=== PATIENT | male | born 1975 | race Caucasian/White ===

== ENCOUNTER 2021-07-03 14:38 | Outpatient (CLI) | payer OTHER ==
--- NOTE | 2021-07-03 15:55 | SLEEP CARE CONSULTATION ---
Information from patient questionnaire entered by Kye Beasley. I have reviewed and concur with the information entered by Kye Beasley. This document represents the service I personally performed and the decisions made by me, Estela Hoang ARNP. History of Present Illness Service Date and Time: 07/03/2021 1438 Reason for Visit: New patient Chief Complaint: reports: Unrefreshed sleep, Snoring, Excessive daytime sleepiness, Fatigue, Frequent awakenings at night Date of Onset: 5 years at least Usual bedtime: 7-8 PM Time it takes to fall asleep: 30 min to an hour Snores at night: Yes Observed to quit breathing while asleep: Yes Sleeps alone due to snoring: No Number of times waking at night: 2-3 Reasons for waking at night: reports: Snoring, Bathroom Toss, Turn, or Twitch while sleeping: Yes Recalls having dreams: No Usually gets out of bed at: 5 AM; Thursday 7-8 am usually Feels refreshed in the morning: Yes (but doesn't last long) Morning headache: No Sleepy or fatigued during the day: Yes Ever fallen asleep while driving: No Takes day naps: Yes (Sundays, 2 hours after getting up in morning will fall asleep on couch) Dreams during day naps: No Prior sleep studies: No Additional HPI information: I had the pleasure of seeing SUAD MONROY today regarding the possibility of him having a sleep disorder. His current complaints are excessive daytime sleepiness, fatigue, frequent night awakenings, observed pauses in breathing, snoring and unrefreshed sleep. He states he will randomly throughout the night. He will have racing thoughts that keep him awake. His has poked him at night to turn over because of his loud snoring or that he stopped breathing. He feels rested when he gets up but by the time he is driving to work he is very tired (feels like he did not sleep at all). He is tired during the day. He can fall asleep easily if watching TV. 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 Patient is and lives in [place]. Have you smoked in the past 12 months: No Alcohol use: Yes Alcohol amount and frequency: 5 beers a week Caffeine use: Yes Caffeine amount and frequency: 10 coffees a week Family History Family history of sleep disordered breathing: No Allergies and Home Medications Drug allergies reviewed: Yes (NKDA) Home medication list reviewed: Yes Allergy and home medication list: Lisinopril Review of Systems Weight loss over past 5 years: 30 Cardiovascular: reports: high blood pressure Gastrointestinal: denies: heartburn Neurological: denies: headaches Psychiatric: denies: anxiety, depression Ear/Nose/Throat: reports: wisdom teeth removed. denies: injury to nose, tonsillectomy Immunologic: denies: allergies to food or environment Physical Exam Blood Pressure: 122/74 Cuff size: wrist Heart Rate: 87 O2 Saturation: 97 Height: 6 ft 5 in Weight: 271 lb Body Mass Index: 32.1 BMI Classification: Obese Neck circumference: 18.25 (inches) Mouth and throat: narrow oropharynx Soft palate: long Hard palate: normal Uvula: normal Uvula visualization: 50% Mallampati Class II Tongue: enlarged in size with teeth stout on lateral edges Tonsils: small Neck: normal w/o lymphadenopathy or thyromegaly Heart: regular rate and rhythm Lungs: clear bilaterally Impression and Plan 1. Suspected Obstructive Sleep Apnea-Hypopnea Syndrome, as suggested by a history of loud and irregular snoring, observed cessation of breath while asleep, frequent awakening during the night, unrefreshed sleep, and excessive daytime sleepiness. Narrow oropharynx and obesity are common predisposing factors for obstructive sleep apnea-hypopnea syndrome. I recommend proceeding to polysomnography to confirm the diagnosis and to assess severity. If the patient has significant sleep disordered breathing, a manual CPAP titration study will also be performed to find the optimal treatment pressure. I informed the patient of what the sleep studies involve and after some discussion, obtained agreement to proceed. The pathophysiology of obstructive sleep apnea-hypopnea syndrome was discussed with the patient and health risks of cardiovascular and cerebrovascular disease if not treated. AASM brochure for obstructive sleep apnea-hypopnea syndrome given and reviewed. Risks of drowsy driving discussed in detail and patient advised to avoid long distance driving and to pull worker at the first sign of drowsiness. Patient agreed to plan. * Schedule polysomnography +- manual CPAP titration study and return in 1-2 weeks after the study to discuss result and initiate therapy. * Avoid long distance driving or driving when feeling sleepy. * Avoid alcohol, sedative and muscle relaxant around bedtime. * Attempt to lose weight. * Review instructions provided by trained office staff on how to prepare for the sleep study. * Return for follow-up after sleep study completed. Counseling Topics: Weight loss health impact Visit Type: In Office Time Spent with Patient (minutes): 32 Provider Statement: I spent 100% of the Face to Face Visit with the patient with greater than 50% spent counseling the patient and coordination of care.
[2021-07-03 15:56] VITALS: BP 122/74
== END 2021-07-03 14:39 | disposition home or self-care (01) ==
LOC: SC 14:38
PROVIDERS: ATTEND Nurse Practitioner Family
DX: R06.83 Snoring (principal); G47.8 Other sleep disorders; G47.10 Hypersomnia, unspecified; E66.9 Obesity, unspecified; Z68.32 Body mass index [BMI] 32.0-32.9, adult
CPT/HCPCS: 99203; 99212

== ENCOUNTER 2021-08-20 15:24 | Outpatient (CLI) | payer OTHER | END 2021-08-20 15:25 | disposition home or self-care (01) | LOC: SC 15:24 | PROVIDERS: ATTEND Nurse Practitioner Family | DX: G47.33 Obstructive sleep apnea (adult) (pediatric) (principal); R09.02 Hypoxemia; I10 Essential (primary) hypertension | CPT/HCPCS: 95806 ==

== ENCOUNTER 2021-09-11 08:51 | Outpatient (CLI) | payer OTHER ==
[2021-09-11 09:51] VITALS: BP 138/111
--- NOTE | 2021-09-11 09:51 | SLEEP CARE CONSULTATION ---
Information from patient questionnaire entered by Massimo Kuo MA. I have reviewed and concur with the information entered by Massimo Kuo MA. This document represents the service I personally performed and the decisions made by , Estela Hoang ARNP. History of Present Illness Service Date and Time: 09/11/2021 0851 Initial [place] Sleepiness Scale score: 15 (in 2020) Current [place] Sleepiness Scale score: 7 (2021) Additional HPI information: SUAD MONROY returns for follow up and results of the recently performed home sleep study. I explained the pathophysiology behind obstructive sleep apnea. We then spent quite a bit of time discussing different treatment options. For mild obstructive sleep apnea, surgery and oral appliance are alternatives to nasal CPAP therapy but in moderate or severe cases, nasal CPAP is the most effective and reliable treatment. Because apnea is primarily in supine position, then positional management therapy could be effective. Methods discussed such as positioning with pillows, using a T-shirt with tennis balls in the back, and shown commercial products that have a pillow format on back to prevent supine sleep. I reviewed the impact of weight changes on sleep apnea and strongly recommended losing weight. After some discussion, the patient opted to go with the nasal CPAP therapy. Nasal autoCPAP set at 4-15 cmH20 will be ordered with rationale explained. A manual titration study will be ordered if unable to find optimal pressure with office adjustments. I explained how CPAP machine works and what to expect when using the machine. Using CPAP every night in order to get used to it was emphasized. Patient advised to put CPAP mask on before getting into bed so as not to fall asleep without CPAP. To assist acclimation to CPAP use, it could also be used for a short time during day while reading or watching TV. The patient was instructed to call the CPAP supplier to discuss any mechanical problem that may occur. If the mask given is uncomfortable or is difficult to keep on through the night even with adjustment, contact the CPAP supplier as many will replace with another mask style if notified before 30 days. If snoring or perceives is not getting enough air or too much air from the machine, notify this office. [facility] patient education PAP tips reviewed and given to patient. Patient counseled not drink alcohol less than 4 hours before bedtime as it can increase snoring and apnea. Patient was cautioned about risks of drowsy driving until sleepiness symptoms resolve. Sleep Study - Results Type of Sleep Study: Home sleep study Prior sleep studies: No Polysomnography/Home Sleep Study results: Physician Impression: The quality of the study is good. The length of the study is adequate (> 240 minutes). Please also see the tabulated and graphic data. 1. Obstructive Sleep Apnea-Hypopnea (ICD-10 G47.33), mild, with an AHI of 13.3/hr and rasta SaO2 of 77%. During the study, the patient had 67 apneas (67 obstructive, 0 central, 0 mixed) and 12 hypopneas. The longest episode lasted 105.5 seconds. The respiratory events occurred almost exclusively during supine sleep (supine AHI was 31.3 and non-supine, 1.13). 2. Hypoxemia (ICD-10 R09.02), moderate, with the lowest oxygen saturation of 77 % and 2.0 minutes with SaO2 under 90%. Baseline oxygen saturation was normal (Average oxygen saturation was 95%). Allergies and Home Medications Home medication list reviewed: Yes (no changes) Review of Systems Review of systems same as previous: Yes (no changes) Physical Exam Vital signs obtained and entered by: Riley KUO CMA AAJOSEPH Blood Pressure: 138/111 (left, retake 128/98 right arm) Cuff size: wrist Heart Rate: 98 O2 Saturation: 84 Height: 6 ft 5 in Weight: 270 lb Body Mass Index: 32.0 BMI Classification: Obese Impression and Plan 1. Obstructive Sleep Apnea-Hypopnea Syndrome, mild, with lowest oxygen saturation of 77%. Obviously this is the cause of the patients symptoms of unrefreshed sleep, and excessive daytime sleepiness. Positive pressure therapy could benefit hypertension. He has tried to stay off his back in the past but get so uncomfortable on his sides that he will end up on his back. The patient will be started on nasal autoCPAP therapy with pressure set at 4-15 cmH2O. A manual titration study will be completed if unable to find optimal treatment pressure with office adjustments. Compliance guidelines also reviewed. A copy of compliance guidelines will be given for reference at check out. Because the apnea is more severe supine, I instructed to avoid sleeping supine using pillow positioning until able to start CPAP use. 2. Hypoxemia, moderate, with the lowest oxygen saturation of 77 % and 2.0 minutes with SaO2 under 90%. His baseline oxygen saturation was normal with an average oxygen saturation of 95%. * Nasal auto CPAP therapy, pressure at 4-15 cm H2O. * Attempt to lose weight. * Avoid alcohol consumption near bedtime. * Avoid supine sleep until using CPAP. * The patient is again cautioned about driving until sleepiness completely resolves. * Return one month after CPAP obtained. I will assess response to therapy and compliance at that time. Counseling Topics: Sleeping position, Weight loss health impact Visit Type: In Office Time Spent with Patient (minutes): 20 Provider Statement: I spent 100% of the Face to Face Visit with the patient with greater than 50% spent counseling the patient and coordination of care.
== END 2021-09-11 08:52 | disposition home or self-care (01) ==
LOC: SC 08:51
PROVIDERS: ATTEND Nurse Practitioner Family
DX: G47.33 Obstructive sleep apnea (adult) (pediatric) (principal); E66.9 Obesity, unspecified; Z68.32 Body mass index [BMI] 32.0-32.9, adult
CPT/HCPCS: 99212; 99213

== ENCOUNTER 2024-01-28 09:24 | Outpatient (CLI) | payer OTHER ==
--- NOTE | 2024-01-28 09:53 | Sleep Patient Instructions ---
Sleep Center Visit Summary - Patient Visit Information Reason for Visit: Annual follow-up - Patient Instructions Additional Instructions: You will continue with CPAP therapy with pressure changed to 8-12 cmH2O. A supply prescription will be updated with your DME. We encourage you to continue to try to lose weight. Please follow up with the sleep care office in 1 year. - Clinic Information Contact: [facility] [address] [place] [address] [email or web address] T: [phone]
--- NOTE | 2024-01-28 09:58 | SLEEP CARE CONSULTATION ---
Information from patient questionnaire entered by Arleen Moura. I have reviewed and concur with the information entered by Arleen Moura. This document represents the service I personally performed and the decisions made by , Estela Hoang ARNP. History of Present Illness Service Date and Time: 01/28/2024923 Previous diagnosis: Mild, Obstructive Sleep Apnea-Hypopnea Syndrome AHI: 13.3 (08/23/21) Reason for follow up: annual (LAST SEEN 09/2021) Equipment type: CPAP (RESMED Airsense 11, s/u 10/2021) Equipment obtained from: [facility] (having shipping issues for his supplies) Mask style: Full face Mask brand: Resmed (AirTouch F20, large cushion) Backup mask available: Yes Last cushion change: 2-3 weeks Prior sleep studies: No Type of Sleep Study: Home sleep study (08/20/2021) HPI additional information: SUAD MONROY was diagnosed to have mild, AHI 13.3, obstructive sleep apnea- hypopnea syndrome and returned today for CPAP therapy annual follow-up. Sleep Study - Results Type of Sleep Study: Home sleep study Prior sleep studies: No CPAP Compliance Data - Data Reviewed with Patient Average duration of nightly device use: 7 HRS 20 MINS Compliance rate %: 85 (01/25/23-01/24/24; 311/365 days used) Current pressure setting (cmH2O): 4-15 (median 6.5, avg 10, max 11.9) Average residual AHI: 1.8 Central apnea: 0.4 Obstructive apnea: 0.6 Hypopnea: 0.7 Average large leak: 0.2 L/min Subjective Missed days of use due to: reports: illness, travel Patient concerns: reports: air blowing in eyes, condensation in mask/hose. denies: aerophagia, mask discomfort, mask leak noise, nasal congestion, dry mouth, nose, throat, epistaxis Observed to snore while using device: No Current pressure setting perceived as: too low (at light) On therapy, patient: reports: sleeping better, awakening more refreshed, being more awake and alert during the day, more rested overall. denies: drowsiness while driving Initial [place] Sleepiness Scale score: 15 (in 2020) Current [place] Sleepiness Scale score: 13 (01/28/24) Allergies and Home Medications Known drug allergies: No Drug allergies reviewed: Yes Home medication list reviewed: Yes (no changes) Review of Systems Review of systems same as previous: Yes (NO CHANGE) Physical Exam Vital signs obtained and entered by: ARLEEN Knox MA Blood Pressure: 131/88 (LEFT ARM) Cuff size: long Heart Rate: 79 O2 Saturation: 100 Height: 6 ft 5 in Weight: 315 lb 3.2 oz Body Mass Index: 37.3 BMI Classification: Obese Mouth and throat: narrow oropharynx Soft palate: long Hard palate: normal Uvula: normal Uvula visualization: 0% Mallampati Class IV Tongue: enlarged in size with teeth stout on lateral edges Tonsils: small Neck: normal w/o lymphadenopathy or thyromegaly Heart: regular rate and rhythm Lungs: clear bilaterally Impression and Plan 1. Obstructive Sleep Apnea-Hypopnea Syndrome, mild, with good treatment compliance and good apnea control. On CPAP therapy, the patient has better sleep quality and is more rested overall. He has felt like his pressure is too low sometimes when he puts the mask on to go to sleep. I will adjust his ramp starting pressure to 5 cmH2O for patient comfort. The patients pressure will be changed to autoCPAP 8-12 cmH20 to reflect pressure being used. Patient advised to contact me if pressure change is uncomfortable so that it can be adjusted. Goals for apnea control discussed. We discussed ways to reduce condensation in his tubing. He voiced understanding. Patient's apnea severity and rationale for treatment to reduce apnea, improve sleep quality and reduce cardiovascular and cerebrovascular events was reviewed. I also reviewed the benefit of consistent device use of CPAP for hypertension. 2. Obesity, unspecified. Currently patients BMI is 37.3. He says he is trying to lose weight. Obesity increases the risk of apnea, CPAP pressure requirements and overall health risks especially cardiovascular and diabetes. Thus patient is advised to lose weight. * Change auto CPAP pressure to 8-12 cmH2O * Notify me if snoring with mask or feeling that the pressure is too much or too little * Attempt to lose weight * Call this office if any problems using CPAP * Return for follow up in 12 months, or sooner if concerns arise Adjust device pressure to (cmH2O): 8-12 Counseling Topics: Spare mask, Weight loss health impact Prescriptions: Device supplies Follow up with Sleep Care in: 1 year Visit Type: In Office Time Spent with Patient (minutes): 24 Provider Statement: I spent 100% of the Face to Face Visit with the patient with greater than 50% spent counseling the patient and coordination of care.
[2024-01-28 10:01] VITALS: BP 131/88; O2SAT 100
== END 2024-01-28 09:25 | disposition home or self-care (01) ==
LOC: SC 09:24
PROVIDERS: ATTEND Nurse Practitioner Family
DX: G47.33 Obstructive sleep apnea (adult) (pediatric) (principal); E66.9 Obesity, unspecified; Z68.37 Body mass index [BMI] 37.0-37.9, adult
CPT/HCPCS: 99212; 99213